=== PATIENT | female | born 1975 | race Two or more races ===

== ENCOUNTER 2017-10-06 12:42 | Emergency (ER) | payer OTHER ==
[~2017-10-06] VITALS: Ht 162.6 cm; Wt 72.6 kg
[2017-10-06 12:54] VITALS: BP 99/66
== END 2017-10-06 13:18 | disposition home or self-care (01) ==
LOC: ER 12:45
DX: L72.8 Other follicular cysts of the skin and subcutaneous tissue (principal)
CPT/HCPCS: A4606; Z7502; Z7610